=== PATIENT | male | born 1965 | race Caucasian/White ===

== ENCOUNTER 2023-11-04 08:54 | Emergency (ER) | payer OTHER ==
[2023-11-04] MEDS ORDERED: ASPIRIN 81 MG CHEWABLE TABLET ONE (09:10)
[2023-11-04 09:35] LABS: Absolute Eosinophils 0.1 K/uL (0-0.5); Absolute Lymphocytes (CBC) 1.5 K/uL (0.7-4.9); Absolute Monocytes 0.9 K/uL (0.1-1.3); Absolute Neutrophil 8.2 K/uL (1.8-8.0); Basophils % 0.4 % (0-1.3); Eosinophils % 1.1 % (0-4.4); Hematocrit 48.3 % (39.6-49.0); Hemoglobin 16.2 g/dL (13.6-17.9); Lymphocytes % 13.8 % (15.3-44.8); MCH 29.4 pg (27.0-35.0); MCHC 33.6 g/dL (32.0-36.0); MCV 87.7 fL (80-100); MPV 7.8 fL (7.6-11.3); Monocytes % 8.1 % (3.3-12.3); Neutrophils % 76.6 % (41.7-73.7); Nucleated Red Blood Cells % 0.1 % (0-0); Platelets 201 thou/uL (152-406); RBC Red Blood Cell Count 5.52 M/uL (4.33-5.43); Red Cell Distribution Width 13.1 % (12.1-15.2)
[2023-11-04 09:39] LABS: PT Prothrombin Time 13.5 SECONDS (9.5-12.5); Protime INR 1.23
[2023-11-04] MEDS ORDERED: ENOXAPARIN 100 MG/ML SYR SQ ONE (09:46)
--- NOTE | 2023-11-04 09:53 | RAD REPORT ---
EXAM DESCRIPTION: RAD - Chest Single View - 11/04/2023 9:33 am CLINICAL HISTORY: Chest pain;Dyspnea COMPARISON: CHEST SINGLE VIEW dated 11/10/2009; CHEST SINGLE VIEW dated 10/01/2009; CHEST SINGLE VIEW dated 04/30/2008 FINDINGS: Lines: None. Lungs: No evidence of edema or pneumonia. Pleural: No significant pleural effusions or pneumothorax. Cardiac: The heart size is within normal limits. Mediastinum: Within normal limits. Bones: No acute fractures. Other: None IMPRESSION: No acute cardiopulmonary disease.
[2023-11-04 09:57] LABS: Albumin 3.7 g/dL (3.4-5.0); Albumin/Globulin Ratio 0.8 (1.1-1.8); Anion Gap 9.7 mEq/L (5.0-15.0); Bilirubin Direct 0.2 mg/dL (0-0.2); Bilirubin Indirect, Calculated 0.6 mg/dL (0.2-0.8); Bilirubin Total 0.8 mg/dL (0.2-1.0); Globulin 4.5 g/dL (2.3-3.5); Magnesium 2.1 mg/dL (1.6-2.4); Potassium 4.7 mEq/L (3.5-5.1); Protein, Total 8.2 g/dL (6.4-8.2)
[2023-11-04 09:58] LABS: Troponin High Sensitivity 175.7 pg/mL (<58.9)
--- NOTE | 2023-11-04 10:15 | RAD REPORT ---
EXAM DESCRIPTION: CT - Chest For Pe Angio - 11/04/2023 10:03 am CLINICAL HISTORY: Chest pain;Dyspnea COMPARISON: CTANGIO CHEST dated 04/26/2008 TECHNIQUE: Dynamically enhanced axial 3 mm thick images of the chest were obtained during administra tion of <100> mL Isovue 370 IV contrast. Coronal and oblique reconstruction images were generated and reviewed. Exam utilizes a protocol for optimal evaluation of pulmonary arterial tree. Maximum intensity projections 3D imaging was utilized All CT scans are performed using dose optimization technique as appropriate and may include automated exposure control or mA/KV adjustment according to patient size. FINDINGS: Chest Wall: No suspicious thyroid nodules or pathologic lymphadenopathy. Lungs: No acute abnormality. Pleura: No significant effusions or pneumothorax. Mediastinum/nevaeh: No pathologic lymphadenopathy. Pulmonary arteries/Aorta: Saddle pulmonary embolism with moderate to large predominantly central bila teral clot burden. No aortic aneurysm. Heart: No significant pericardial effusion. Normal heart size. Straightening of the intraventricular septum and left ventricular dilatation. Upper abdomen: No acute abnormality. Bones: No acute abnormality. IMPRESSION: Positive for pulmonary embolism. Saddle pulmonary embolus with moderate to large clot bu rden and findings concerning for right heart strain. Conveyed to Dr. Carrillo by Dr. Schmitz at 1011 on 11/04/23.
[2023-11-04] MEDS ORDERED: HEPARIN 5000 UNIT/ML 1 ML VIAL ONE (10:29)
[2023-11-04] MEDS ORDERED: NA CHLORIDE 0.9% 1,000 ML ONE ×2 (10:30→11:00)
--- NOTE | 2023-11-04 10:53 | RAD REPORT ---
EXAM DESCRIPTION: US - Extrem Venous W Compress Joseluis - 11/04/2023 10:26 am CLINICAL HISTORY: PAIN COMPARISON: EXT VENOUS W COMPRESSION JOSELUIS dated 04/26/2008 TECHNIQUE: Real-time sonographic evaluation of the lower extremity deep venous systems was performed using color Doppler, grayscale, and compression. FINDINGS: Bilateral lower extremities. The right popliteal vein and posterior tibial vein are not compressible. Echogenic clot present on gr ayscale. The remaining veins within the right and left lower extremity are compressible and without e vidence of deep venous thrombosis. IMPRESSION: Positive for occlusive thrombus in the right popliteal vein and posterior tibial vein. N o deep venous thrombosis in the left lower extremity. Conveyed to Dr. Carrillo by Dr. Schmitz at 1040 on 11/04/23
--- NOTE | 2023-11-04 11:41 | ER ---
Nurse's Notes [facility] Name: Rick Portillo Age: 57 yrs Sex: Male : 1965 Arrival Date: 11/04/2023 Time: 08:54 Bed 7 Private MD: Diagnosis: Chest pain on breathing;Acute embolism and thrombosis of unspecified deep veins of right lower extremity;Saddle embolus of pulmonary artery with acute cor pulmonale Presentation: 11/03 09:08 Chief complaint: Chest tightness and SOB x 3-4 days. Coronavirus screen: At this time, hb the client does not indicate any symptoms associated with coronavirus-19. Ebola Screen: No symptoms or risks identified at this time. Initial Sepsis Screen: Does the patient meet any 2 criteria? RR > 20 per min. HR > 90 bpm. No. Patient's initial sepsis screen is negative. Does the patient have a suspected source of infection? No. Patient's initial sepsis screen is negative. Risk Assessment: Do you want to hurt yourself or someone else? Patient reports no desire to harm self or others. Onset of symptoms was October 31, 2023. 09:08 Method Of Arrival: Ambulatory 09:08 Acuity: ADITYA 3 hb Triage Assessment: 09:09 General: Appears in no apparent distress. ill, Behavior is calm, cooperative. Pain: hb Denies pain. Neuro: Level of Consciousness is awake, alert, obeys commands, Oriented to person, place, time, situation. Cardiovascular: Patient's skin is warm and dry. Respiratory: Reports shortness of breath at rest on exertion Onset: The symptoms/episode began/occurred 3-4 days ago, the patient has moderate shortness of breath. Historical: - Allergies: 09:09 No Known Allergies; hb - Home Meds: 09:09 aspirin 81 mg Oral tablet,chewable [Active]; metoprolol tartrate 50 mg Oral tablet hb [Active]; atorvastatin 20 mg oral tablet [Active]; - PMHx: 09:09 Hypertension; IN; Endocarditis; hb 09:10 Hypercholesterolemia; aa5 - Immunization history:: Adult Immunizations up to date. - Infectious Disease History:: Denies. - Social history:: Smoking status: Patient denies any tobacco usage or history of. Screenin: [facility] ED Fall Risk Assessment (Adult) History of falling in the last 3 months, aa5 including since admission No falls in past 3 months (0 pts) Confusion or Disorientation No (0 pts) Intoxicated or Sedated No (0 pts) Impaired Gait No (0 pts) Mobility Assist Device Used No (0 pt) Altered Elimination No (0 pt) Score/Fall Risk Level 0 - 2 = Low Risk Oriented to surroundings, Maintained a safe environment, Educated pt \\T\\ family on fall prevention, incl call for assistance when getting out of bed. Abuse screen: Denies threats or abuse. Nutritional screening: No deficits noted. Tuberculosis screening: No symptoms or risk factors identified. Assessment: 09:10 General: Appears comfortable, Behavior is calm, cooperative. Pain: Complains of pain in aa5 mid-sternal area Pain does not radiate. Pain currently is 0 out of 10 on a pain scale. Quality of pain is described as heavy, pressure, Pain began 1 day ago. Is episodic, Aggravated by increased activity. Neuro: Level of Consciousness is awake, alert, obeys commands, Oriented to person, place, time, situation. Cardiovascular: Reports chest tightness on exertion Heart tones S1 S2 present swelling noted to right leg Rhythm is sinus rhythm with unifocal PVCs. Respiratory: Reports shortness of breath on exertion cough Airway is patent Respiratory effort is even, unlabored, Respiratory pattern is regular, symmetrical, Breath sounds are clear bilaterally. GI: Abdomen is round non-distended, Bowel sounds present X 4 quads. Abd is soft and non tender X 4 quads. : No signs and/or symptoms were reported regarding the genitourinary system. EENT: No signs and/or symptoms were reported regarding the EENT system. Derm: Skin is pink, warm \\T\\ dry. Musculoskeletal: Range of motion: intact in all extremities. 09:40 Reassessment: Patient and/or family updated on plan of care and expected duration. Pain aa5 level reassessed. Patient is alert, oriented x 3, equal unlabored respirations, skin warm/dry/pink. Pt sitting up in bed, states no complaints at this time. Pt's remains at bedside. . 09:57 Reassessment: Patient is alert, oriented x 3, equal unlabored respirations, skin aa5 warm/dry/pink. . 09:57 Reassessment: Pt now to CT . aa5 10:45 Reassessment: Patient is alert, oriented x 3, equal unlabored respirations, skin aa5 warm/dry/pink. Pt states "as long as I don't move, I don't get short of breath" . 10:45 Reassessment: Pt's remains at bedside. . aa5 11:10 Reassessment: Patient is alert, oriented x 3, equal unlabored respirations, skin aa5 warm/dry/pink. 11:48 Reassessment: Patient is alert, oriented x 3, equal unlabored respirations, skin aa5 warm/dry/pink. Vital Signs: 09:08 BP 131 / 88; Pulse 103; Resp 24; Temp 97.9(TE); Pulse Ox 100% on R/A; Weight 104.33 kg; hb Height 5 ft. 10 in. ; Pain 0/10; 09:40 Pulse 98; Resp 18 S; Pulse Ox 95% on R/A; aa5 10:45 BP 140 / 101; Pulse 100; Resp 24 S; Pulse Ox 94% on R/A; aa5 10:47 Pulse 98; Resp 18 S; Pulse Ox 98% on 2 lpm NC; aa5 11:10 BP 130 / 97; Pulse 101; Resp 19 S; Temp 97.8(TE); Pulse Ox 98% on 2 lpm NC; aa5 09:08 Body Mass Index 33.00 (104.33 kg, 177.8 cm) hb 09:08 Pain Scale: Adult hb ED Course: 08:57 Patient arrived in ED. mg5 08:57 Juan Carrillo MD is Attending Physician. jeimy 09:02 Becca Sandoval, RN is Primary Nurse. aa5 09:09 Triage completed. hb 09:10 EKG done, by ED staff, reviewed by Juan Carrillo MD. aa5 09:10 Patient has correct armband on for positive identification. Placed in gown. Bed in low aa5 position. Call light in reach. Side rails up X2. Arm band placed on. Client placed on continuous cardiac and pulse oximetry monitoring. NIBP monitoring applied. night monitor on. Pulse ox on. NIBP on. 09:15 Initial lab(s) drawn, by me, sent to lab. Inserted saline lock: 20 gauge in left aa5 antecubital area, using aseptic technique. Blood collected. 09:35 XRAY Chest (1 view) In Process Unspecified. EDMS 09:58 Notified ED physician of a critical lab result(s). TROP 175.7. hb 10:04 CT Chest For PE Angio In Process Unspecified. EDMS 10:27 US Extremity Venous W Compression Joseluis In Process Unspecified. EDMS 10:[address] Carrillo with Moises Hung from the [facility].eb 10:[address] Daniels the cardiac slot key person law firm consultant for [facility] with Dr. Gerardo grullon for patient transfer consultation. 10:55 Inserted saline lock: 20 gauge in left ,using aseptic technique. cephalic vein,8 cm, US aa5 guided, inserted by Rajiv Hanson RN. 11:17 administrative approval given by Moises Hung/ patient has been accepted to [facility] CCU room 6107 / Dr. Leny Daniels has accepted the patient in transfer/ report to be called to [phone]. 11:48 No provider procedures requiring assistance completed. Patient transferred, IV remains aa5 in place. Administered Medications: 09:29 Not Given (Physician Discretion; Pt reports he took ASA 81mg PO PTAo): aspirinchewable aa5 tablet 324 mg PO once; 81 mg tablets x 4 09:29 Drug: Aspirin PO 243 mg PO once Route: PO; aa5 09:57 Follow up: Response: No adverse reaction aa5 09:57 Drug: Enoxaparin Sub-Q 1 mg/kg Sub-Q once Route: Sub-Q; Site: right lower abdomen; aa5 10:38 Follow up: Response: No adverse reaction aa5 10:30 Drug: Heparin (DVT/PE- Bolus per protocol) - HEParin IVP 80469 units IVP once aa5 {Co-Signature: rs5 (Cooper Beaver RN).} Route: IVP; Site: left antecubital; 10:38 Follow up: Response: No adverse reaction aa5 10:38 Not Given (Physician Discretion): [id number] mg PO once aa5 10:38 Not Given (Physician Discretion): [id number] mg PO once aa5 10:38 Drug: NS 0.9% IV 1000 ml IV at 1000 ml once Route: IV; Rate: 1000 ml; Site: left aa5 antecubital; 11:48 Follow up: IV Status: Completed infusion; IV Intake: 1000ml aa5 11:02 Drug: NS 0.9% IV 1000 ml IV at 1 bolus Per protocol; 1000 mL bolus Route: IV; Rate: 1 aa5 bolus; Site: left antecubital; 11:48 Follow up: IV Status: Completed infusion; IV Intake: 1000ml aa5 Medication: 09:38 VIS not applicable for this client. aa5 Intake: 11:48 IV: 1000ml; Total: 1000ml. aa5 11:48 IV: 1000ml; Total: 2000ml. aa5 Outcome: 11:40 ER care complete, transfer ordered by . jeimy 11:42 Transferred by helicopter to [facility], [facility], Transfer form completed. aa5 X-rays sent w/ patient. Note: Report given to life flight 11:42 Condition: stable 11:42 Instructed on the need for transfer, Demonstrated understanding of instructions, 11:48 Patient left the ED. aa5 Signatures: Dispatcher [employer] EDMS Juan Carrillo MD MD cha Calderon, Audri, RN RN aa5 Suzi Chavis RN RN [facility] mg[facility] Cooper Beaver RN rs5 Corrections: (The following items were deleted from the chart) 09:30 09:17 Arm band placed on aa5 09:30 09:17 Patient has correct armband on for positive identification. Placed in gown. Bed aa5 in low position. Call light in reach. Side rails up X2. aa5 09:30 09:17 Client placed on continuous cardiac and pulse oximetry monitoring. NIBP aa5 monitoring applied. night monitor on. Pulse ox on. NIBP on. aa5 09:38 09:10 General: Appears uncomfortable, Behavior is calm, cooperative, aa5 aa5 10:03 09:40 Pulse 98bpm; Resp 18bpm; Spontaneous; Pulse Ox 99% RA; aa5 aa5 13:21 09:10 Cardiovascular: Reports chest tightness on exertion Heart tones S1 S2 present aa5 Rhythm is sinus rhythm with unifocal PVCs aa5
--- NOTE | 2023-11-04 11:41 | EDPHYS ---
Physician Documentation [facility] Name: Rick Portillo Age: 57 yrs Sex: Male : 1965 Arrival Date: 11/04/2023 Time: 08:54 Bed 7 Private MD: ED Physician Juan Carrillo HPI: 11/03 11:34 This 57 yrs old Male presents to ER via Ambulatory with complaints of Shortness Of jeimy Breath, Chest Tightness. 11:34 The patient has shortness of breath at rest, with light activity. Onset: The jeimy symptoms/episode began/occurred yesterday. Duration: The symptoms are continuous, and are steadily getting worse. The patient's shortness of breath is aggravated by exertion, light activity, talking, walking, is alleviated by rest, sitting up, application of supplemental oxygen. Associated signs and symptoms: Pertinent positives: chest pain, productive cough. Severity of symptoms: At their worst the symptoms were moderate severe in the emergency department the symptoms are unchanged. The patient has not experienced similar symptoms in the past. Historical: - Allergies: 09:09 No Known Allergies; hb - Home Meds: 09:09 aspirin 81 mg Oral tablet,chewable [Active]; metoprolol tartrate 50 mg Oral tablet hb [Active]; atorvastatin 20 mg oral tablet [Active]; - PMHx: 09:09 Hypertension; OH; Endocarditis; hb 09:10 Hypercholesterolemia; aa5 - Immunization history:: Adult Immunizations up to date. - Infectious Disease History:: Denies. - Social history:: Smoking status: Patient denies any tobacco usage or history of. ROS: 11:34 Constitutional: Negative for fever, chills, and weight loss, Eyes: Negative for injury, jeimy pain, redness, and discharge, ENT: Negative for injury, pain, and discharge, Neck: Negative for injury, pain, and swelling, Abdomen/GI: Negative for abdominal pain, nausea, vomiting, diarrhea, and constipation, Back: Negative for injury and pain, : Negative for injury, bleeding, discharge, and swelling, Skin: Negative for injury, rash, and discoloration, Neuro: Negative for headache, weakness, numbness, tingling, and seizure, Psych: Negative for depression, anxiety, suicide ideation, homicidal ideation, and hallucinations, Allergy/Immunology: Negative for hives, rash, and allergies, Endocrine: Negative for neck swelling, polydipsia, polyuria, polyphagia, and marked weight changes, Hematologic/Lymphatic: Negative for swollen nodes, abnormal bleeding, and unusual bruising, 11:34 Cardiovascular: Positive for chest pain, orthopnea, palpitations, 11:34 Respiratory: Positive for cough, shortness of breath, at rest. 11:34 MS/extremity: Positive for decreased range of motion, pain, swelling, tenderness, of the right leg, Exam: 11:34 Constitutional: This is a well developed, well nourished patient who is awake, alert, jeimy and in no acute distress. Head/Face: Normocephalic, atraumatic. Eyes: Pupils equal round and reactive to light, extra-ocular motions intact. Lids and lashes normal. Conjunctiva and sclera are non-icteric and not injected. Cornea within normal limits. Periorbital areas with no swelling, redness, or edema. ENT: Nares patent. No nasal discharge, no septal abnormalities noted. Tympanic membranes are normal and external auditory canals are clear. Oropharynx with no redness, swelling, or masses, exudates, or evidence of obstruction, uvula midline. Mucous membranes moist. Neck: Trachea midline, no thyromegaly or masses palpated, and no cervical lymphadenopathy. Supple, full range of motion without nuchal rigidity, or vertebral point tenderness. No Meningismus. Chest/axilla: Normal chest wall appearance and motion. Nontender with no deformity. No lesions are appreciated. Respiratory: Lungs have equal breath sounds bilaterally, clear to auscultation and percussion. No rales, rhonchi or wheezes noted. No increased work of breathing, no retractions or nasal flaring. Abdomen/GI: Soft, non-tender, with normal bowel sounds. No distension or tympany. No guarding or rebound. No evidence of tenderness throughout. Back: No spinal tenderness. No costovertebral tenderness. Full range of motion. Male : Normal genitalia with no discharge or lesions. Skin: Warm, dry with normal turgor. Normal color with no rashes, no lesions, and no evidence of cellulitis. Neuro: Awake and alert, GCS 15, oriented to person, place, time, and situation. Cranial nerves II-XII grossly intact. Motor strength 5/5 in all extremities. Sensory grossly intact. Cerebellar exam normal. Normal gait. Psych: Awake, alert, with orientation to person, place and time. Behavior, mood, and affect are within normal limits. 11:34 Cardiovascular: Rate: tachycardic, actual rate is 98 bpm, Rhythm: regular, Pulses: Pulses are 4+ in bilateral radial, brachial, femoral, popliteal, posterior tibial and and dorsalis pedis arteries.. Heart sounds: normal, normal S1and S2, no S3 or S4, no murmur, no rub, no gallop, Edema: is not appreciated, JVD: is not appreciated, 11:34 ECG was reviewed by the Attending Physician. 11:34 Musculoskeletal/extremity: ROM: intact in all extremities, full active range of motion, full passive range of motion, limited active range of motion, Circulation is intact in all extremities. Sensation intact. Compartment Syndrome exam of affected extremity: is normal. Weight bearing: able to fully bear weight, Tendon exam: specific tendon testing normal through active and passive range of motion DVT Exam: negative Homans' sign noted on exam, no appreciated bluish discoloration, no erythema, no increased warmth, pain, swelling, tenderness, Vital Signs: 09:08 BP 131 / 88; Pulse 103; Resp 24; Temp 97.9(TE); Pulse Ox 100% on R/A; Weight 104.33 kg; hb Height 5 ft. 10 in. ; Pain 0/10; 09:40 Pulse 98; Resp 18 S; Pulse Ox 95% on R/A; aa5 10:45 BP 140 / 101; Pulse 100; Resp 24 S; Pulse Ox 94% on R/A; aa5 10:47 Pulse 98; Resp 18 S; Pulse Ox 98% on 2 lpm NC; aa5 11:10 BP 130 / 97; Pulse 101; Resp 19 S; Temp 97.8(TE); Pulse Ox 98% on 2 lpm NC; aa5 09:08 Body Mass Index 33.00 (104.33 kg, 177.8 cm) hb 09:08 Pain Scale: Adult hb MDM: 08:57 Patient medically screened. jeimy 11:36 Differential diagnosis: Anemia Anxiety Reaction asthma, CHF exacerbation, Chronic jeimy Obstructive Pulmonary Disease abnormal EKG, acute pericarditis, anxiety, coronary artery disease chest wall pain, congestive heart failure cholecystitis, Cholelithiasis esophagitis, gastritis, gastroesophageal reflux disease (GERD), pancreatitis, peptic ulcer disease, pericarditis, pleurisy, pneumonia, pneumothorax, pulmonary embolus, stable angina, thoracic aortic disection, unstable angina, pneumonia, Pneumothorax pulmonary edema, Pulmonary Embolism reactive airway disease, Sepsis Unstable Angina. Antibiotic administration: Not indicated. HEART Score: History: Moderately Suspicious (1), ECG: Non specific repolarization disturbance / LBTB / PM (1), Age: > 45 and < 65 years (1), Risk Factors: > or = 3 Risk factors for atherosclerotic disease (2), [Hypercholesterolemia] [Hypertension] [DM] [+ Family HX] [Obesity] Troponin: > 1 and < 3 x normal limit (1), Total Score = 4. The patient was given aspirin in the Emergency Department. QUINTON Risk Score: 1 - Three or more CAD risk factors, 1 - ASA use in past 7 days, 1 - Elevated Cardiac Markers, TOTAL SCORE = 3. Immunization status: Influenza vaccine: within last 5 years. Data reviewed: vital signs, nurses notes, lab test result(s), EKG, radiologic studies, CT scan, doppler, ultrasound. Consideration of Admission/Observation Escalation of care including admission/observation considered. I considered the following discharge prescriptions or medication management in the emergency department Medications were administered in the Emergency Department. See MAR. Independent interpretation of the following test(s) in the Emergency Department EKG: See my EKG interpretation above. Test considered but Not performed: MRI: no MRI chest. Historians other than the Patient: Spouse/Significant Other: well informed. Care significantly affected by the following chronic conditions: Hypertension, Obesity. Counseling: I had a detailed discussion with the patient and/or guardian regarding the historical points, exam findings, and any diagnostic results supporting the discharge/admit diagnosis, lab results, radiology results, the need to transfer to another facility, for higher level of care, [facility] does not immediately have the required specialist. 11/03 08:58 Order name: Basic Metabolic Panel; Complete Time: 09:58 [facility] 11/03 08:58 Order name: CBC with Diff; Complete Time: 09:58 [facility] 11/03 08:58 Order name: LFT's; Complete Time: 09:58 [facility] 11/03 08:58 Order name: Magnesium; Complete Time: 09:58 [facility] 11/03 08:58 Order name: NT PRO-BNP; Complete Time: 09:58 11/03 08:58 Order name: PT-INR; Complete Time: 09:58 11/03 08:58 Order name: Troponin HS; Complete Time: 09:58 11/03 08:58 Order name: Lipase; Complete Time: 09:58 11/03 09:18 Order name: Lipid Profile; Complete Time: 11:41 11/03 09:44 Order name: TSH; Complete Time: 11:41 11/03 08:58 Order name: XRAY Chest (1 view); Complete Time: 09:58 11/03 09:18 Order name: US Extremity Venous W Compression Joseluis; Complete Time: 11:41 11/03 09:18 Order name: CT Chest For PE Angio; Complete Time: 11:41 11/03 08:58 Order name: EKG; Complete Time: 08:59 11/03 08:58 Order name: Cardiac monitoring; Complete Time: 09:12 11/03 08:58 Order name: EKG - Nurse/Tech; Complete Time: 09:12 11/03 08:58 Order name: IV Saline Lock; Complete Time: 09:28 11/03 08:58 Order name: Labs collected and sent; Complete Time: 09:28 11/03 08:58 Order name: O2 Per Protocol; Complete Time: 09:12 11/03 08:58 Order name: O2 Sat Monitoring; Complete Time: 09:12 11/03 10:54 Order name: NPO; Complete Time: 10:56 11/03 11:41 Order name: IV Saline Lock - Large Bore; Complete Time: 11:48 [facility] EC:34 Rate is 99 beats/min. Rhythm is regular. QRS [place] is Normal. MA interval is normal. QRS jeimy interval is normal. QT interval is normal. No Q waves. T waves are Normal. No ST changes noted. Clinical impression: NSR w/ Non-specific ST/T Changes and No evidence of ischemia. Interpreted by me. Reviewed by me. Administered Medications: 09:29 Not Given (Physician Discretion; Pt reports he took ASA 81mg PO PTAo): aspirinchewable aa5 tablet 324 mg PO once; 81 mg tablets x 4 09:29 Drug: Aspirin PO 243 mg PO once Route: PO; aa5 09:57 Follow up: Response: No adverse reaction aa5 09:57 Drug: Enoxaparin Sub-Q 1 mg/kg Sub-Q once Route: Sub-Q; Site: right lower abdomen; aa5 10:38 Follow up: Response: No adverse reaction aa5 10:30 Drug: Heparin (DVT/PE- Bolus per protocol) - HEParin IVP 31897 units IVP once aa5 {Co-Signature: rs5 (Cooper Beaver RN).} Route: IVP; Site: left antecubital; 10:38 Follow up: Response: No adverse reaction aa5 10:38 Not Given (Physician Discretion): [id number] mg PO once aa5 10:38 Not Given (Physician Discretion): [id number] mg PO once aa5 10:38 Drug: NS 0.9% IV 1000 ml IV at 1000 ml once Route: IV; Rate: 1000 ml; Site: left aa5 antecubital; 11:48 Follow up: IV Status: Completed infusion; IV Intake: 1000ml aa5 11:02 Drug: NS 0.9% IV 1000 ml IV at 1 bolus Per protocol; 1000 mL bolus Route: IV; Rate: 1 aa5 bolus; Site: left antecubital; 11:48 Follow up: IV Status: Completed infusion; IV Intake: 1000ml aa5 Disposition: 11:40 Critical Care:. jeimy Disposition Summary: 11/04/23 11:40 Transfer Ordered Notes: Transfer Location: [facility] jeimy Reason: Higher level of care jeimy Condition: Critical jeimy Problem: new jeimy Symptoms: are unchanged jeimy Accepting Physician: TO DR COLIN(11/04/23 11:48) aa5 Diagnosis - Chest pain on breathing jeimy - Acute embolism and thrombosis of unspecified deep veins of right lower extremity jeimy - Saddle embolus of pulmonary artery with acute cor pulmonale jeimy Discharge Instructions: - Discharge Summary Sheet hb Forms: - Medication Reconciliation Form jeimy - SBAR form hb Critical care time excluding procedures: 11:40 Critical care time: Bedside Care: 35 minutes, Consultation: 20 minutes, Family jeimy Intervention: 10 minutes. Total time: 65 minutes Signatures: Dispatcher [employer] Juan Alamo MD MD cha Calderon, Audri RN RN aa5 Suzi Chavis RN RN Cooper Beaver RN rs5 Corrections: (The following items were deleted from the chart) 08:59 08:59 BASIC METABOLIC PANEL+C.LAB.BRZ ordered. EDMS EDMS 08:59 08:59 CBC+H.LAB.BRZ ordered. EDMS EDMS 08:59 08:59 HEPATIC FUNCTION+C.LAB.BRZ ordered. EDMS EDMS 08:59 08:59 MAGNESIUM+C.LAB.BRZ ordered. EDMS EDMS 08:59 08:59 PROBNP+C.LAB.BRZ ordered. EDMS EDMS 08:59 08:59 PROTIME (+INR)+COAG.LAB.BRZ ordered. EDMS EDMS 08:59 08:59 Troponin High Sensitivity+C.LAB.BRZ ordered. EDMS EDMS 08:59 08:59 LIPASE+C.LAB.BRZ ordered. EDMS EDMS 08:59 08:59 Urinalysis+U.LAB.BRZ ordered. EDMS EDMS 09:18 09:18 Extrem Venous W Compression Joseluis+US.RAD.BRZ ordered. EDMS EDMS 09:19 09:18 Chest For PE Angio+CT.RAD.BRZ ordered. EDMS EDMS 09:19 09:19 EC Echo Doppler W/Color Flow+ECHO.RAD.BRZ ordered. EDMS EDMS 09:19 09:19 LIPID PROFILE+C.LAB.BRZ ordered. EDMS EDMS 11:48 11:[address] DIXIE munson aa5
[2023-11-04 14:29] VITALS: BP 140/101; TEMP 97.9; O2SAT 98
--- NOTE | 2023-11-07 07:11 | ECHO ---
HEIGHT: 5 ft 10 in WEIGHT: 230 lb 0 oz DATE OF STUDY: 11/04/[address]: Juan Carrillo MD 2-DIMENSIONAL: YES M.MODE: YES DOPPLER: YES COLOR FLOW: YES TDS: YES PORTABLE: YES DEFINITY: BUBBLE STUDY: DIAGNOSIS: SHORTNESS OF BREATH CARDIAC HISTORY: CATHERIZATION: SURGERY: PROSTHETIC VALVE: PACEMAKER: MEASUREMENTS (cm) DIASTOLIC (NORMALS) SYSTOLIC (NORMALS) IVSd (0.6-1.2) LA Diam (1.9-4.0) LVEF 44% LVIDd (3.5-5.7) LVIDs (2.0-3.5) %FS % LVPWd (0.6-1.2) Ao Diam 3.3 (2.0-3.7) 2 DIMENSIONAL ASSESSMENT: RIGHT ATRIUM: LEFT ATRIUM: RIGHT VENTRICLE: LEFT VENTRICLE: TRICUSPID VALVE: MITRAL VALVE: PULMONIC VALVE: AORTIC VALVE: PERICARDIAL EFFUSION: AORTIC ROOT: LEFT VENTRICULAR WALL MOTION: DOPPLER/COLOR FLOW: COMMENTS: 1. VERY LIMITED EXAM DUE TO POOR WINDOWS 2. LEFT VENTRICULAR EJECTION FRACTION APPEARS TO BE NORMAL TECHNOLOGIST: NAHID ELI
== END 2023-11-04 11:48 | disposition short-term general hospital (02) ==
LOC: ER 08:54
DX: I26.02 Saddle embolus of pulmonary artery with acute cor pulmonale (principal); I82.4Z1 Acute embolism and thrombosis of unspecified deep veins of right distal lower extremity; I10 Essential (primary) hypertension; Z79.82 Long term (current) use of aspirin
CPT/HCPCS: 96361; 93306; 85025; 80048; 36415; 83735; 85610; 80061; 80076; 84443; 84484; 83690; 83880; 71275; 71045; 93970; 96372; 96374; 99285; Q9967; J1644; J1650; J7030 ×2; 93005

== ENCOUNTER 2024-05-11 06:46 | Day surgery (SDC) | payer OTHER ==
[2024-05-10 09:35] LABS: Absolute Eosinophils 0.1 K/uL (0-0.5); Absolute Lymphocytes (CBC) 1.6 K/uL (0.7-4.9); Absolute Monocytes 0.6 K/uL (0.1-1.3); Basophils % 0.4 % (0-1.3); Eosinophils % 1.6 % (0-4.4); Hematocrit 44.6 % (39.6-49.0); Hemoglobin 15.1 g/dL (13.6-17.9); Lymphocytes % 24.8 % (15.3-44.8); MCH 29.8 pg (27.0-35.0); MCHC 33.7 g/dL (32.0-36.0); MCV 88.4 fL (80-100); MPV 8.2 fL (7.6-11.3); Monocytes % 9.6 % (3.3-12.3); Neutrophils % 63.6 % (41.7-73.7); Nucleated Red Blood Cells % 0.1 % (0-0); Platelets 167 thou/uL (152-406); RBC Red Blood Cell Count 5.05 M/uL (4.33-5.43)
[2024-05-10 09:43] LABS: PT Prothrombin Time 13.1 SECONDS (9.4-12.5); PTT, Activated Partial Thromb 45.4 SECONDS (24.3-36.9); Protime INR 1.18
[2024-05-10 09:56] LABS: Anion Gap 6.6 mEq/L (5.0-15.0); Potassium 4.6 mEq/L (3.5-5.1)
--- NOTE | 2024-05-10 11:47 | EKG ---
Test Date: 2024-05-10 Test Time: 08:19:37 Utility Agent: PUNEET MEASUREMENT RESULTS: Intervals: Rate: 52 IN: 212 QRSD: 90 QT: 402 QTc: 373 [place]: P: 25 IN: 212 QRS: 64 T: 70 INTERPRETIVE STATEMENTS: Sinus bradycardia with 1st degree AV block Otherwise normal ECG Compared to ECG 11/04/2023 09:08:49 First degree AV block now present Sinus rhythm no longer present Ventricular premature complex(es) no longer present Electronically Signed On 05-10-24 11:46:54 CDT by Edwin Martinez
[2024-05-11] MEDS ORDERED: Ringers Lactate 1,000 ML IV ONE (06:57)
[2024-05-11] MEDS ORDERED: LIDOCAINE 1% MPF 30 ML VIAL ONE (07:52)
[2024-05-11] MEDS ORDERED: propofoL 200 MG/20 ML VIAL IV ONE (07:53)
[2024-05-11 09:46] VITALS: BP 120/63; TEMP 97.5; O2SAT 100
== END 2024-05-11 09:33 | disposition home or self-care (01) ==
LOC: OR 06:46
PROVIDERS: ATTEND Surgery
PROC: 0DB98ZX Excision of Duodenum, Via Natural or Artificial Opening Endoscopic, Diagnostic (ICD-10-PCS; 2024-05-11)
PROC: 0DB68ZX Excision of Stomach, Via Natural or Artificial Opening Endoscopic, Diagnostic (ICD-10-PCS; 2024-05-11)
PROC: 0DB28ZX Excision of Middle Esophagus, Via Natural or Artificial Opening Endoscopic, Diagnostic (ICD-10-PCS; 2024-05-11)
PROC: 0DB38ZX Excision of Lower Esophagus, Via Natural or Artificial Opening Endoscopic, Diagnostic (ICD-10-PCS; 2024-05-11)
PROC: 0DBH8ZX Excision of Cecum, Via Natural or Artificial Opening Endoscopic, Diagnostic (ICD-10-PCS; principal; 2024-05-11 08:00)
PROC: 0DBN8ZX Excision of Sigmoid Colon, Via Natural or Artificial Opening Endoscopic, Diagnostic (ICD-10-PCS; 2024-05-11 08:00)
DX: Z12.11 Encounter for screening for malignant neoplasm of colon (principal); K21.9 Gastro-esophageal reflux disease without esophagitis; N42.9 Disorder of prostate, unspecified; K57.30 Diverticulosis of large intestine without perforation or abscess without bleeding; K64.8 Other hemorrhoids; D12.0 Benign neoplasm of cecum; K63.5 Polyp of colon; K21.00 Gastro-esophageal reflux disease with esophagitis, without bleeding; K29.50 Unspecified chronic gastritis without bleeding; K44.9 Diaphragmatic hernia without obstruction or gangrene; K29.80 Duodenitis without bleeding
CPT/HCPCS: 93005; 85025; 80048; 36415; 88312; 85610; 88305; 85730; 45380; 43239; J2704; J2001; J7120